=== PATIENT | male | born 1995 | race African-American/Black ===

== ENCOUNTER 2016-10-25 16:39 | Emergency (ER) | payer OTHER ==
[~2016-10-25] VITALS: Ht 170.2 cm; Wt 87.7 kg
[2016-10-25 16:47] VITALS: TEMP 98.7
[2016-10-25] MEDS ORDERED: PROAIR HFA0.09 MG/AC IH (16:50)
[2016-10-25 18:36] VITALS: BP 143/103; PULSE 51
== END 2016-10-25 18:38 | disposition home or self-care (01) ==
LOC: COL.ER 16:39
DX: S68.625A Partial traumatic transphalangeal amputation of left ring finger, initial encounter (principal); W23.0XXA Caught, crushed, jammed, or pinched between moving objects, initial encounter